=== PATIENT | female | born 1990 | race Caucasian/White ===

== ENCOUNTER 2021-09-25 14:57 | Emergency (ER) | payer OTHER ==
[~2021-09-25] VITALS: Ht 172.7 cm; Wt 74.8 kg
[2021-09-25 14:57] VITALS: BP_SYST 105
--- NOTE | 2021-09-25 14:57 | NUR ---
BROUGHT BACK TO AMBULANCE RAMP AND TRIAGED. AWAITING ER BED AVAILABILITY
--- NOTE | 2021-09-25 15:35 | NUR ---
COVID-19 [facility] SWAB OBTAINED AND SENT TO THE LAB.
--- NOTE | 2021-09-25 16:06 | NUR ---
BROUGHT IN TO BED IN [place]WAY, PT IS NEGATIVE FOR COVID
--- NOTE | 2021-09-25 16:24 | NUR ---
DR COSME AT BEDSIDE FOR EVALUATION
[2021-09-25] MEDS ORDERED: IBUP-1971 PO (16:40)
[2021-09-25] MEDS ORDERED: AMOX500C2 PO (16:40)
[2021-09-25] MEDS ORDERED: cephALEXin 500 MG CAPSULE PO ONE (16:45)
[2021-09-25] MEDS ORDERED: IBUPROFEN 800 MG TABLET PO ONE (16:45)
[2021-09-25 16:56] VITALS: BP_SYST 121
--- NOTE | 2021-09-25 16:57 | NUR ---
Patient given written and verbal discharge instructions and verbalizes understanding. ER MD discussed with patient the results and treatment provided. Patient in stable condition. ID arm band removed. Rx of AMOXICILLIN, IBUPROFEN given. Patient educated on pain management and to follow up with PMD. Pain Scale 0/10. Opportunity for questions provided and answered. Medication side effect fact sheet provided. WORK NOTE GIVEN PER REQUEST
== END 2021-09-25 16:57 | disposition home or self-care (01) ==
LOC: SED 14:57
DX: J02.9 Acute pharyngitis, unspecified (principal); R50.9 Fever, unspecified; R05.9 Cough, unspecified; Z20.822 Contact with and (suspected) exposure to COVID-19
CPT/HCPCS: 36415; 99283